=== PATIENT | male | born 1945 | race Caucasian/White ===

== ENCOUNTER 2019-07-13 12:46 | Emergency (ER) | payer MEDICARE, OTHER ==
[~2019-07-13] VITALS: Ht 167.6 cm; Wt 81.0 kg
[2019-07-13 13:29] LABS: BASOPHILS # (AUTO) 0.1 X10'3 (0-0.2); BASOPHILS % (AUTO) 0.6 % (0-1); EOSINOPHILS # (AUTO) 0.4 X10'3 (0-0.9); EOSINOPHILS % (AUTO) 4.1 % (0-6); HEMATOCRIT 41.4 % (42.0-52.0); LYMPHOCYTES # (AUTO) 1.6 X10'3 (1.1-4.8); MEAN CORPUSCULAR HEMOGLOBIN 31.3 PG (27.0-31.0); MEAN CORPUSCULAR HGB CONC 33.9 g/dL (33.0-36.5); MEAN CORPUSCULAR VOLUME 92.5 FL (78-98); NEUTROPHILS # (AUTO) 6.3 X10'3 (1.8-7.7); NEUTROPHILS % (AUTO) 67.3 % (42-75); PLATELET COUNT 211 X10'3 (140-440); RED BLOOD COUNT 4.47 X10'6 (4.70-6.10); RED CELL DISTRIBUTION WIDTH 14.1 % (11.5-14.5); WHITE BLOOD COUNT 9.3 X10'3 (4.5-11.0)
[2019-07-13 13:47] LABS: ALANINE AMINOTRANSFERASE 21 U/L (12-78); ALBUMIN 3.6 G/DL (3.4-5.0); ALBUMIN/GLOBULIN RATIO 0.9 (1.1-1.5); ALKALINE PHOSPHATASE 61 IU/L (46-116); ANION GAP 9 (8-16); ASPARTATE AMINO TRANSFERASE 16 U/L (10-37); BILIRUBIN,TOTAL 0.6 MG/DL (0.1-1.0); BLOOD UREA NITROGEN 30 MG/DL (7-18); BUN/CREATININE RATIO 18.9 (5.4-32.0); CALCIUM 8.9 MG/DL (8.5-10.1); CHLORIDE 100 MMOL/L (99-107); CREATININE 1.59 MG/DL (0.60-1.10); GLUCOSE 95 MG/DL (70-104); LIPASE 191 U/L (73-393); POTASSIUM 3.6 MMOL/L (3.5-5.1); SODIUM 139 MMOL/L (135-145); TOTAL CARBON DIOXIDE 29.9 MMOL/L (24-32); TOTAL PROTEIN 7.6 G/DL (6.4-8.2); eGFR 43 ML/MIN
[2019-07-13] MEDS ORDERED: ringers solution, lacted 1,000 ML IV ONE (14:15)
[2019-07-13] MEDS ORDERED: ondansetron/PF 4mg/2ml inj IV ONE (14:15)
[2019-07-13] MEDS ORDERED: morphine 4 MG/ML inj SYRINge IV ONE (14:15)
[2019-07-13 14:46] LABS: CLARITY,URINE CLEAR (Clear); COLOR,URINE YELLOW (Yellow); GLUCOSE, URINE NEGATIVE (Neg); KETONES,URINE NEGATIVE (Neg); LEUKOCYTE ESTERASE ,URINE NEGATIVE (Neg); NITRITES, URINE NEGATIVE (Neg); OCCULT BLOOD,URINE NEGATIVE (Neg); PROTEIN,URINE NEGATIVE (Neg)
[2019-07-13 14:49] LABS: UA COLLECTION TYPE CLN CATCH MIDSTREAM
[2019-07-13] MEDS ORDERED: PER5325T PO (15:07)
[2019-07-13] MEDS ORDERED: FLO0.4C PO (15:07)
[2019-07-13] MEDS ORDERED: ONDA4TAB6 PO (15:07)
[2019-07-13] MEDS ORDERED: oxyCODONE/APAP 10/325mg tablet PO ONE (15:30)
[2019-07-13 15:49] VITALS: BP 171/76
== END 2019-07-13 16:05 | disposition home or self-care (01) ==
LOC: ER 12:47
DX: N13.2 Hydronephrosis with renal and ureteral calculous obstruction (principal); N17.9 Acute kidney failure, unspecified; R19.7 Diarrhea, unspecified; F41.9 Anxiety disorder, unspecified; I10 Essential (primary) hypertension; Z79.899 Other long term (current) drug therapy; Z87.19 Personal history of other diseases of the digestive system; Z85.46 Personal history of malignant neoplasm of prostate; Z90.49 Acquired absence of other specified parts of digestive tract; Z98.890 Other specified postprocedural states; Z90.79 Acquired absence of other genital organ(s)
CPT/HCPCS: 36415; 74176; 80053; 81003; 83690; 85025; 96361; 96374; 96375; 99284; J2270; J2405; J7120

== ENCOUNTER 2019-07-23 10:32 | Outpatient (CLI) | payer MEDICARE, OTHER ==
[~2019-07-23 10:32] MED LIST: FLO0.4C PO; ONDA4TAB6 PO; PER5325T PO
[2019-07-23 11:34] LABS: ALANINE AMINOTRANSFERASE 19 U/L (12-78); ALBUMIN 3.5 G/DL (3.4-5.0); ALBUMIN/GLOBULIN RATIO 0.9 (1.1-1.5); ALKALINE PHOSPHATASE 58 IU/L (46-116); ANION GAP 7 (8-16); ASPARTATE AMINO TRANSFERASE 18 U/L (10-37); BILIRUBIN,TOTAL 0.5 MG/DL (0.1-1.0); BLOOD UREA NITROGEN 32 MG/DL (7-18); BUN/CREATININE RATIO 22.4 (5.4-32.0); CALCIUM 9.2 MG/DL (8.5-10.1); CHLORIDE 99 MMOL/L (99-107); CREATININE 1.43 MG/DL (0.60-1.10); GLUCOSE 102 MG/DL (70-104); POTASSIUM 3.9 MMOL/L (3.5-5.1); SODIUM 137 MMOL/L (135-145); TOTAL PROTEIN 7.3 G/DL (6.4-8.2); eGFR 49 ML/MIN
== END 2019-07-23 23:59 | disposition home or self-care (01) ==
LOC: LAB 10:32
PROVIDERS: ATTEND Family Medicine
DX: N13.39 Other hydronephrosis (principal)
CPT/HCPCS: 36415; 80053

== ENCOUNTER 2019-08-15 07:05 | Observation (INO) | payer MEDICARE, OTHER ==
[2019-08-13 10:41] LABS: BASOPHILS % (AUTO) 0.6 % (0-1); EOSINOPHILS # (AUTO) 0.1 X10'3 (0-0.9); EOSINOPHILS % (AUTO) 2.1 % (0-6); LYMPHOCYTES # (AUTO) 1.2 X10'3 (1.1-4.8); LYMPHOCYTES % (AUTO) 18.6 % (21-51); MEAN CORPUSCULAR HEMOGLOBIN 31.4 PG (27.0-31.0); MEAN CORPUSCULAR HGB CONC 34.1 g/dL (33.0-36.5); MEAN CORPUSCULAR VOLUME 92.1 FL (78-98); MEAN PLATELET VOLUME 10.1 FL (7.4-10.4); MONOCYTES # (AUTO) 0.6 X10'3 (0-0.9); MONOCYTES % (AUTO) 9.7 % (2-12); NEUTROPHILS # (AUTO) 4.4 X10'3 (1.8-7.7); PRE OP HEMATOCRIT 39.6 % (42.0-52.0); PRE OP HEMOGLOBIN 13.5 g/dL (14.0-17.9); PRE OP PLATELET COUNT 164 X10'3 (140-440); RED CELL DISTRIBUTION WIDTH 14.6 % (11.5-14.5)
[2019-08-13 10:56] LABS: ALBUMIN 3.9 G/DL (3.4-5.0); ALBUMIN/GLOBULIN RATIO 1.1 (1.1-1.5); ALKALINE PHOSPHATASE 59 IU/L (46-116); BLOOD UREA NITROGEN 34 MG/DL (7-18); BUN/CREATININE RATIO 21.7 (5.4-32.0); CALCIUM 9.4 MG/DL (8.5-10.1); CHLORIDE 102 MMOL/L (99-107); CREATININE 1.57 MG/DL (0.60-1.10); PRE OP ALT 19 U/L (30-65); PRE OP ANION GAP 11 (8-16); PRE OP AST 18 U/L (10-37); PRE OP BILIRUB, TOTAL 0.5 MG/DL (0.0-1.0); PRE OP GLUCOSE 91 MG/DL (70-104); PRE OP POTASSIUM 4.3 MMOL/L (3.4-5.1); PRE OP SODIUM 142 MMOL/L (135-145); TOTAL CARBON DIOXIDE 29.1 MMOL/L (24-32); TOTAL PROTEIN 7.5 G/DL (6.4-8.2); eGFR 44 ML/MIN
[2019-08-15] VITALS (18 sets, daily range): BP systolic 122–151; BP diastolic 55–90
[~2019-08-15] VITALS: Ht 170.2 cm; Wt 82.6 kg
[~2019-08-15 07:05] MED LIST changes: +CHOL100046 PO; +CITA20TA28 PO; +LISI1TAB28 PO; +MULT-1085 PO; -ONDA4TAB6 PO; -PER5325T PO; +PRAV40TA3 PO; +ceFAZolin 1GM/D5W- ADD-VANTAGE 50 ML IV ONE; +famotidine 20mg tablet PO ONE; +ringers solution, lacted 1,000 ML IV SCH
[2019-08-15] MEDS ORDERED: LIDOcaine 1% (10mg/ml) 2ml vial ONE (07:51)
[2019-08-15] MEDS ORDERED: fentaNYL/PF 50MCG/1 ML 2ML syringe ONE ×2 (09:13→10:18)
[2019-08-15] MEDS ORDERED: rocuronium 10mg/ml inj IV ONE (09:16)
[2019-08-15] MEDS ORDERED: LIDOcaine 2% (20mg/ml) 5ml vial ONE (09:16)
[2019-08-15] MEDS ORDERED: propofol inj 20 ML IV ONE (09:16)
[2019-08-15] MEDS ORDERED: sevoflurane 250ml liquid IH ONE (09:16)
[2019-08-15] MEDS ORDERED: ondansetron/PF 4mg/2ml inj IV PRN ×2 (09:50→12:25)
[2019-08-15] MEDS ORDERED: ringers solution, lacted 1,000 ML IV SCH (09:50)
[2019-08-15] MEDS ORDERED: morphine 4 MG/ML inj SYRINge IV PRN (09:50)
[2019-08-15] MEDS ORDERED: HYDROmorphone inj. 0.5 MG/0.5 ML DISP.SYRIN IV PRN (09:50)
[2019-08-15] MEDS ORDERED: neostigmine methylsulfate 1 MG/ML 10ml vial ONE (09:57)
[2019-08-15] MEDS ORDERED: glycopyrrolate 0.2mg/ml inj ONE (09:57)
[2019-08-15] MEDS ORDERED: ondansetron/PF 4mg/2ml inj ONE (09:57)
[2019-08-15] MEDS ORDERED: dexamethasone sod phosphate 4mg/ml inj. ONE (09:57)
[2019-08-15] MEDS ORDERED: ceFAZolin 1000mg inj ONE (09:57)
[2019-08-15] MEDS ORDERED: iohexol 300 MG/1 ML 10ml vial ONE (11:04)
[2019-08-15] MEDS ORDERED: ePHEDrine 50MG/ML INJ. ONE (11:49)
--- NOTE | 2019-08-15 12:19 | NUR ---
Received from OR via SURGICAL BED , accompanied by Anesthesiologist MIKI and report given by Anesthesiolgist. PATIENT WITH 20G PIV IN LEFT WRIST AREA. PATIENT DENIES PAIN. 3 WAY COLE IRRIGATION WITH LEG SECUREMENT DEVICE IN PLACE. PATIENT VSS.SCDS DONNED Addendum: 08/15/19 at 1238 by Kehinde Covington RN, RN Amended: Links added.
[2019-08-15] MEDS ORDERED: HYDROcodone/acetaminophen 10/325mg tab PO PRN (12:25)
[2019-08-15] MEDS ORDERED: HYDROcodone/acetaminophen 5mg/325mg tablet PO PRN (12:25)
--- NOTE | 2019-08-15 13:19 | NUR ---
ALL CRITERIA FOR TRANSFER TO THE FLOOR HAS BEEN ACHIEVED. VSS. BED LOW, CALL LIGHT AND VS. SET IN PLACE. RN PRESENT TO ACCEPT CARE. PATIENT RESTING COMFORTABLY IN BED. BELONGINGS SENT WITH PATIENT. DRESSINGS CDI. AUGUSTO CADET PRESENT TO ACCEPT CARE. VSS. CBI RUNNING WITH URINE STILL PINK IN COLORATION. Addendum: 08/15/19 at 1334 by Kehinde Tanner - AUGUSTO CASAS Amended: Links added.
--- NOTE | 2019-08-15 13:23 | NUR ---
RECEIVED REPORT FROM RECOVERY
[2019-08-15] MEDS: potassium CL 20mEq in D5-1/2NS 1,000 ML IV SCH ×2 (13:41→23:26)
[2019-08-15] MEDS ORDERED: ceFAZolin inj. 1,000 MG in dextrose 5%-water 50ml 50 ML IV SCH ×2 (16:00→19:23)
[2019-08-15] MEDS ORDERED: opium/belladonna alkaloids No. 15A 30mg rectal suppository RC PRN (18:25)
--- NOTE | 2019-08-15 18:30 | NUR ---
Patient in room [facility]. I have received report from AUGUSTO Stuart and had the opportunity to ask questions and assume patient care.
[2019-08-15] MEDS: ceFAZolin inj. 1,000 MG in dextrose 5%-water 50ml 50 ML IV SCH ×2 (19:36→23:26)
[2019-08-16] VITALS: BP 132/74
[2019-08-16 05:29] LABS: ALBUMIN 3.3 G/DL (3.4-5.0); ANION GAP 7 (8-16); BLOOD UREA NITROGEN 19 MG/DL (7-18); BUN/CREATININE RATIO 15.4 (5.4-32.0); CALCIUM 8.5 MG/DL (8.5-10.1); CHLORIDE 104 MMOL/L (99-107); CREATININE 1.23 MG/DL (0.60-1.10); GLUCOSE 123 MG/DL (70-104); SODIUM 140 MMOL/L (135-145); TOTAL CARBON DIOXIDE 29.2 MMOL/L (24-32); eGFR 58 ML/MIN
[2019-08-16 05:31] LABS: BASOPHILS % (AUTO) 0.3 % (0-1); EOSINOPHILS # (AUTO) 0.1 X10'3 (0-0.9); EOSINOPHILS % (AUTO) 0.7 % (0-6); HEMATOCRIT 36.8 % (42.0-52.0); HEMOGLOBIN 12.7 g/dl (14.0-17.9); LYMPHOCYTES # (AUTO) 1.4 X10'3 (1.1-4.8); LYMPHOCYTES % (AUTO) 16.4 % (21-51); MEAN CORPUSCULAR HGB CONC 34.4 g/dL (33.0-36.5); MEAN CORPUSCULAR VOLUME 93.1 FL (78-98); MEAN PLATELET VOLUME 10.6 FL (7.4-10.4); MONOCYTES # (AUTO) 0.7 X10'3 (0-0.9); MONOCYTES % (AUTO) 7.9 % (2-12); NEUTROPHILS # (AUTO) 6.4 X10'3 (1.8-7.7); NEUTROPHILS % (AUTO) 74.7 % (42-75); PLATELET COUNT 165 X10'3 (140-440); RED BLOOD COUNT 3.96 X10'6 (4.70-6.10); RED CELL DISTRIBUTION WIDTH 14.9 % (11.5-14.5); WHITE BLOOD COUNT 8.5 X10'3 (4.5-11.0)
--- NOTE | 2019-08-16 06:30 | NUR ---
Problems reprioritized. Patient report given, questions answered & plan of care reviewed with AUGUSTO Storey.
--- NOTE | 2019-08-16 06:38 | NUR ---
Patient in room [facility]. I have received report from Ysabel CASAS and had the opportunity to ask questions and assume patient care.
[2019-08-16 08:00] VITALS: BP 154/67
[2019-08-16] MEDS ORDERED: HYDR-3965 PO (09:12)
[2019-08-16] MEDS ORDERED: CIPR-260 PO (09:12)
[2019-08-16] MEDS: potassium CL 20mEq in D5-1/2NS 1,000 ML IV SCH (09:43)
[2019-08-16 11:00] VITALS: BP 151/77
== END 2019-08-16 15:20 | disposition home or self-care (01) ==
LOC: PAS 07:05 → SUR 3N 12:21
PROVIDERS: ADMIT Student in an Organized Health Care Education/Training Program; ATTEND Student in an Organized Health Care Education/Training Program
PROC: BT1F1ZZ Fluoroscopy of Left Kidney, Ureter and Bladder using Low Osmolar Contrast (ICD-10-PCS; 2019-08-15)
PROC: 0T778DZ Dilation of Left Ureter with Intraluminal Device, Via Natural or Artificial Opening Endoscopic (ICD-10-PCS; 2019-08-15)
PROC: 0TBB8ZZ Excision of Bladder, Via Natural or Artificial Opening Endoscopic (ICD-10-PCS; principal; 2019-08-15 09:15)
DX: N13.2 Hydronephrosis with renal and ureteral calculous obstruction (principal); Z85.46 Personal history of malignant neoplasm of prostate; D30.3 Benign neoplasm of bladder; I10 Essential (primary) hypertension; R10.84 Generalized abdominal pain; G47.30 Sleep apnea, unspecified; Z87.891 Personal history of nicotine dependence; R33.8 Other retention of urine
CPT/HCPCS: 36415; 52235; 52332; 76000; 80048; 80053; 82948; 85025; 96365; 96366; 96375; C1758; C1769; C2617; G0378; J0690; J1100; J1170; J2001; J2405; J2704; J2710; J3010; J3480; J7030; J7060; Q9967; 88307; A4346; A4618; A7000; J3490; J7120

== ENCOUNTER 2019-08-22 21:39 | Emergency (ER) | payer MEDICARE, OTHER ==
[~2019-08-22] VITALS: Ht 170.2 cm; Wt 81.8 kg
[~2019-08-22 21:39] MED LIST changes: +CIPR-260 PO; +HYDR-3965 PO; -ceFAZolin 1GM/D5W- ADD-VANTAGE 50 ML IV ONE; -famotidine 20mg tablet PO ONE; -ringers solution, lacted 1,000 ML IV SCH
[2019-08-22] MEDS ORDERED: tamsulosin 0.4mg capsule PO ONE (22:40)
[2019-08-22] MEDS ORDERED: oxybutynin 5mg tablet PO SCH (22:40)
[2019-08-22] MEDS ORDERED: tamsulosin 0.4mg capsule PO SCH (22:40)
[2019-08-22] MEDS ORDERED: oxybutynin 5mg tablet PO ONE (22:40)
[2019-08-22] MEDS ORDERED: OXYB5TAB16 PO (23:04)
[2019-08-22] MEDS ORDERED: DIAZ5TAB PO (23:04)
[2019-08-22] MEDS ORDERED: PHEN-824 PO (23:04)
[2019-08-22 23:16] VITALS: BP 142/111
== END 2019-08-22 23:18 | disposition home or self-care (01) ==
LOC: ER 21:39
DX: T83.038A Leakage of other urinary catheter, initial encounter (principal); N35.919 Unspecified urethral stricture, male, unspecified site; I10 Essential (primary) hypertension; Z98.890 Other specified postprocedural states; Z90.49 Acquired absence of other specified parts of digestive tract; Z79.899 Other long term (current) drug therapy; Y92.89 Other specified places as the place of occurrence of the external cause
CPT/HCPCS: 99283

== ENCOUNTER 2019-10-22 09:45 | Outpatient (CLI) | payer MEDICARE, OTHER ==
[2019-10-21 12:24] LABS: ALBUMIN 4.1 G/DL (3.4-5.0); ANION GAP 10 (8-16); BLOOD UREA NITROGEN 27 MG/DL (7-18); BUN/CREATININE RATIO 23.7 (5.4-32.0); CALCIUM 9.2 MG/DL (8.5-10.1); CHLORIDE 103 MMOL/L (99-107); CREATININE 1.14 MG/DL (0.60-1.10); GLUCOSE 99 MG/DL (70-104); POTASSIUM 4.2 MMOL/L (3.5-5.1); SODIUM 141 MMOL/L (135-145); TOTAL CARBON DIOXIDE 27.7 MMOL/L (24-32); eGFR 63 ML/MIN
[~2019-10-22 09:45] MED LIST changes: +DIAZ5TAB PO; -HYDR-3965 PO; +OXYB5TAB16 PO; +PHEN-824 PO; +iohexol 300mg/ml 100ml inj. ONE
== END 2019-10-22 23:59 | disposition home or self-care (01) ==
LOC: 64 CT 09:45
PROVIDERS: ATTEND Student in an Organized Health Care Education/Training Program
DX: C61 Malignant neoplasm of prostate (principal); N20.0 Calculus of kidney; K44.9 Diaphragmatic hernia without obstruction or gangrene; K43.9 Ventral hernia without obstruction or gangrene; K42.9 Umbilical hernia without obstruction or gangrene
CPT/HCPCS: 36415; 74177; 80048; Q9967

== ENCOUNTER 2019-11-15 23:10 | Emergency (ER) | payer MEDICARE, OTHER ==
[~2019-11-15] VITALS: Ht 170.2 cm; Wt 87.9 kg
[~2019-11-15 23:10] MED LIST changes: -iohexol 300mg/ml 100ml inj. ONE
[2019-11-15] MEDS ORDERED: oxybutynin 5mg tablet PO ONE (23:30)
[2019-11-15] MEDS ORDERED: tamsulosin 0.4mg capsule PO ONE (23:30)
[2019-11-15] MEDS ORDERED: opium/belladonna alkaloids No. 15A 30mg rectal suppository RC ONE (23:40)
[2019-11-15 23:56] LABS: ALANINE AMINOTRANSFERASE 26 U/L (12-78); ALBUMIN 4.2 G/DL (3.4-5.0); ALBUMIN/GLOBULIN RATIO 1.2 (1.1-1.5); ALKALINE PHOSPHATASE 60 IU/L (46-116); ANION GAP 10 (8-16); ASPARTATE AMINO TRANSFERASE 20 U/L (10-37); BILIRUBIN,TOTAL 0.4 MG/DL (0.1-1.0); BLOOD UREA NITROGEN 35 MG/DL (7-18); BUN/CREATININE RATIO 30.2 (5.4-32.0); CALCIUM 9.7 MG/DL (8.5-10.1); CHLORIDE 103 MMOL/L (99-107); CREATININE 1.16 MG/DL (0.60-1.10); GLUCOSE 140 MG/DL (70-104); LIPASE 192 U/L (73-393); POTASSIUM 3.6 MMOL/L (3.5-5.1); SODIUM 142 MMOL/L (135-145); TOTAL CARBON DIOXIDE 28.8 MMOL/L (24-32); TOTAL PROTEIN 7.8 G/DL (6.4-8.2); eGFR 62 ML/MIN
[2019-11-16] LABS: BASOPHILS # (AUTO) 0.1 X10'3 (0-0.2); BASOPHILS % (AUTO) 0.7 % (0-1); EOSINOPHILS # (AUTO) 0.2 X10'3 (0-0.9); EOSINOPHILS % (AUTO) 2.6 % (0-6); HEMATOCRIT 44.7 % (42.0-52.0); HEMOGLOBIN 15.5 g/dl (14.0-17.9); LYMPHOCYTES # (AUTO) 2.1 X10'3 (1.1-4.8); LYMPHOCYTES % (AUTO) 24.6 % (21-51); MEAN CORPUSCULAR HEMOGLOBIN 31.6 PG (27.0-31.0); MEAN CORPUSCULAR HGB CONC 34.6 g/dL (33.0-36.5); MEAN CORPUSCULAR VOLUME 91.3 FL (78-98); MEAN PLATELET VOLUME 9.9 FL (7.4-10.4); MONOCYTES # (AUTO) 0.9 X10'3 (0-0.9); MONOCYTES % (AUTO) 10.7 % (2-12); NEUTROPHILS # (AUTO) 5.1 X10'3 (1.8-7.7); NEUTROPHILS % (AUTO) 61.4 % (42-75); PLATELET COUNT 167 X10'3 (140-440); RED BLOOD COUNT 4.89 X10'6 (4.70-6.10); RED CELL DISTRIBUTION WIDTH 13.7 % (11.5-14.5); WHITE BLOOD COUNT 8.4 X10'3 (4.5-11.0)
[2019-11-16 00:17] LABS: CLARITY,URINE CLOUDY (Clear); COLOR,URINE RED (Yellow); GLUCOSE, URINE NEGATIVE (Neg); KETONES,URINE NEGATIVE (Neg); LEUKOCYTE ESTERASE ,URINE NEGATIVE (Neg); NITRITES, URINE NEGATIVE (Neg); OCCULT BLOOD,URINE LARGE (Neg); PH,URINE 6.5 (4.8-8.0); PROTEIN,URINE 30 mg/dl (Neg); UROBILINOGEN,URINE 0.2 E.U/dL (0.2-1.0)
[2019-11-16 00:18] LABS: UA COLLECTION TYPE FOLEY CATH
[2019-11-16 00:39] LABS: BACTERIA,URINE NONE SEEN /HPF (Neg); MUCUS STRANDS NONE SEEN /LPF (Neg); RBC,URINE TNTC /HPF (0-2); SQUAMOUS EPITHELIAL CELL,UR NONE SEEN /LPF (FEW); WBC,URINE 0-4 /HPF (0-4)
[2019-11-16] MEDS ORDERED: B030R RC (00:44)
[2019-11-16 00:56] VITALS: BP 148/67
== END 2019-11-16 00:57 | disposition home or self-care (01) ==
LOC: ER 23:11
DX: R31.9 Hematuria, unspecified (principal); R33.9 Retention of urine, unspecified; N32.89 Other specified disorders of bladder; I10 Essential (primary) hypertension; F41.9 Anxiety disorder, unspecified; Z90.49 Acquired absence of other specified parts of digestive tract; Z98.890 Other specified postprocedural states; Z79.2 Long term (current) use of antibiotics; Z79.899 Other long term (current) drug therapy
CPT/HCPCS: 36415; 80053; 81001; 83690; 85025; 99284

== ENCOUNTER 2022-01-17 13:13 | Outpatient (CLI) | payer MEDICARE, OTHER ==
[~2022-01-17 13:13] MED LIST changes: -LISI1TAB28 PO; +LISI1TAB51 PO
== END 2022-01-17 23:59 | disposition home or self-care (01) ==
LOC: RAD 13:13
PROVIDERS: ATTEND Student in an Organized Health Care Education/Training Program
DX: N28.1 Cyst of kidney, acquired (principal)
CPT/HCPCS: 76770

== ENCOUNTER 2022-05-11 14:51 | Outpatient (CLI) | payer MEDICARE, OTHER | END 2022-05-11 23:59 | disposition home or self-care (01) | LOC: RAD 14:51 | PROVIDERS: ATTEND Nurse Practitioner Family | DX: I51.7 Cardiomegaly (principal) | CPT/HCPCS: 71046 ==

== ENCOUNTER 2022-07-28 13:59 | Outpatient (CLI) | payer MEDICARE, OTHER | END 2022-07-28 23:59 | disposition home or self-care (01) | LOC: RAD 13:59 | PROVIDERS: ATTEND Nurse Practitioner Family | DX: M25.512 Pain in left shoulder (principal) | CPT/HCPCS: 73030 ==

== ENCOUNTER → 2022-09-04 | Outpatient (CLI) | payer MEDICARE, OTHER | END | disposition home or self-care (01) | LOC: RAD 13:49 | PROVIDERS: ATTEND Nurse Practitioner Family | DX: M19.012 Primary osteoarthritis, left shoulder (principal); M75.82 Other shoulder lesions, left shoulder; R22.32 Localized swelling, mass and lump, left upper limb | CPT/HCPCS: 73221 ==

== ENCOUNTER 2023-03-26 13:40 | Outpatient (CLI) | payer MEDICARE, OTHER | END 2023-03-26 23:59 | disposition home or self-care (01) | LOC: RAD 13:40 | PROVIDERS: ATTEND Nurse Practitioner Family | DX: J98.11 Atelectasis (principal); N62 Hypertrophy of breast; I25.10 Atherosclerotic heart disease of native coronary artery without angina pectoris; N28.89 Other specified disorders of kidney and ureter; Z87.891 Personal history of nicotine dependence | CPT/HCPCS: 71250 ==

== ENCOUNTER 2023-04-21 14:47 | Emergency (ER) | payer MEDICARE, OTHER ==
[~2023-04-21] VITALS: Ht 170.2 cm; Wt 100.0 kg
[2023-04-21 15:00] VITALS: BP 198/108; PULSE 74; RESP 18; TEMP 98.3; O2SAT 96
[2023-04-21] MEDS ORDERED: tamsulosin 0.4mg capsule PO STA (15:59)
== END 2023-04-21 16:22 | disposition home or self-care (01) ==
LOC: ER 14:48
DX: R33.9 Retention of urine, unspecified (principal); I10 Essential (primary) hypertension; Z79.899 Other long term (current) drug therapy; Z79.2 Long term (current) use of antibiotics; Z98.890 Other specified postprocedural states
CPT/HCPCS: 51701; 99284; C1758

== ENCOUNTER 2023-04-30 13:32 | Outpatient (CLI) | payer MEDICARE, OTHER ==
[2023-04-26 15:53] LABS: ALANINE AMINOTRANSFERASE 24 U/L (12-78); ALBUMIN 3.9 G/DL (3.4-5.0); ALBUMIN/GLOBULIN RATIO 1.3 (1.1-1.5); ALKALINE PHOSPHATASE 62 IU/L (46-116); ANION GAP 8 (8-16); ASPARTATE AMINO TRANSFERASE 16 U/L (10-37); BILIRUBIN,TOTAL 0.3 MG/DL (0.1-1.0); BLOOD UREA NITROGEN 29 MG/DL (7-18); BUN/CREATININE RATIO 27.4 (10.0-20.0); CALCIUM 8.9 MG/DL (8.5-10.1); CHLORIDE 103 MMOL/L (99-107); CREATININE 1.06 MG/DL (0.60-1.10); GLUCOSE 94 MG/DL (70-104); POTASSIUM 3.9 MMOL/L (3.5-5.1); SODIUM 139 MMOL/L (135-145); TOTAL CARBON DIOXIDE 28.5 MMOL/L (24-32); eGFR 68 ML/MIN
[2023-04-30] MEDS ORDERED: GADOTERATE MEGLUMINE 7.5 MMOL/15 ML VIAL IV ONE (14:41)
== END 2023-04-30 23:59 | disposition home or self-care (01) ==
LOC: RAD 13:32
PROVIDERS: ATTEND Nurse Practitioner Family
DX: Z01.812 Encounter for preprocedural laboratory examination (principal); N18.30 Chronic kidney disease, stage 3 unspecified; R16.0 Hepatomegaly, not elsewhere classified; N28.1 Cyst of kidney, acquired; K76.89 Other specified diseases of liver
CPT/HCPCS: 36415; 74183; 80053; A9575

== ENCOUNTER 2024-01-07 14:05 | Day surgery (SDC) | payer MEDICARE, OTHER ==
[2024-01-04 11:52] LABS: BASOPHILS % (AUTO) 0.6 % (0-1); EOSINOPHILS # (AUTO) 0.2 X10'3 (0-0.9); HEMATOCRIT 41.3 % (42.0-52.0); HEMOGLOBIN 13.9 g/dl (14.0-17.9); LYMPHOCYTES # (AUTO) 1.6 X10'3 (1.1-4.8); MEAN CORPUSCULAR HEMOGLOBIN 30.8 PG (27.0-31.0); MEAN CORPUSCULAR HGB CONC 33.7 g/dL (33.0-36.5); MEAN CORPUSCULAR VOLUME 91.4 FL (78-98); MEAN PLATELET VOLUME 9.7 FL (7.4-10.4); MONOCYTES # (AUTO) 0.7 X10'3 (0-0.9); NEUTROPHILS # (AUTO) 5.4 X10'3 (1.8-7.7); NEUTROPHILS % (AUTO) 67.4 % (42-75); PLATELET COUNT 177 X10'3 (140-440); RED BLOOD COUNT 4.52 X10'6 (4.70-6.10); RED CELL DISTRIBUTION WIDTH 14.9 % (11.5-14.5)
[2024-01-04 12:03] LABS: ALBUMIN 3.7 G/DL (3.4-5.0); ANION GAP 9 (8-16); BLOOD UREA NITROGEN 21 MG/DL (7-18); BUN/CREATININE RATIO 21.9 (10.0-20.0); CALCIUM 8.8 MG/DL (8.5-10.1); CHLORIDE 103 MMOL/L (99-107); CREATININE 0.96 MG/DL (0.60-1.10); GLUCOSE 115 MG/DL (70-104); POTASSIUM 4.1 MMOL/L (3.5-5.1); SODIUM 138 MMOL/L (135-145); TOTAL CARBON DIOXIDE 25.9 MMOL/L (24-32); eGFR 76 ML/MIN
[2024-01-04 12:06] LABS: APTT 27 SECONDS (22-32); INR 1.1 INR
[~2024-01-07] VITALS: Ht 170.2 cm; Wt 91.8 kg
[2024-01-07] VITALS (10 sets, daily range): BP systolic 130–156; BP diastolic 74–98; PULSE 78–93; RESP 12–23; TEMP 98; O2SAT 92–97
[~2024-01-07 14:05] MED LIST changes: -OXYB5TAB16 PO; +OXYB5TAB21 PO
[2024-01-07] MEDS ORDERED: normal saline 1,000 ML IV SCH (14:30)
[2024-01-07] MEDS ORDERED: diphenhydrAMINE 25mg capsule PO PRN (14:30)
[2024-01-07] MEDS ORDERED: LORazepam 0.5 MG tablet PO PRN (14:30)
[2024-01-07] MEDS ORDERED: EZET10TA48 PO (14:38)
[2024-01-07] MEDS ORDERED: ASPI-611 PO (14:38)
[2024-01-07] MEDS ORDERED: ROSU40TA22 PO (14:38)
[2024-01-07] MEDS ORDERED: CLOP75TA34 PO (14:38)
[2024-01-07] MEDS ORDERED: CHOL100040 PO (14:38)
[2024-01-07] MEDS ORDERED: GABA-530 PO (14:38)
[2024-01-07] MEDS ORDERED: atropine 0.1mg/ml 10ml syringe ONE (15:52)
[2024-01-07] MEDS ORDERED: heparin 1,000unit/ml 10ml vial 0 ML ONE (15:52)
[2024-01-07] MEDS ORDERED: phenylephrine 10mg/ml inj. -priapism dosing ONE (15:52)
[2024-01-07] MEDS ORDERED: LIDOcaine 1% 30ml preserv. free vial ONE (15:52)
[2024-01-07] MEDS ORDERED: iohexol 350MG/ML 100ml bottle IV ONE (15:53)
[2024-01-07] MEDS ORDERED: DOPamine 400mg/D5W 250ml 0 ML IV ONE (15:53)
[2024-01-07] MEDS ORDERED: HYDROcodone/acetaminophen 5mg/325mg tablet PO PRN (17:30)
[2024-01-07] MEDS ORDERED: HYDROcodone/acetaminophen 10/325mg tab PO PRN (17:30)
== END 2024-01-07 19:20 | disposition home or self-care (01) ==
LOC: SSTAY O 14:05
PROVIDERS: ATTEND Student in an Organized Health Care Education/Training Program
DX: I65.21 Occlusion and stenosis of right carotid artery (principal); I10 Essential (primary) hypertension; E78.00 Pure hypercholesterolemia, unspecified; G47.33 Obstructive sleep apnea (adult) (pediatric); F41.9 Anxiety disorder, unspecified; Z85.46 Personal history of malignant neoplasm of prostate; Z79.82 Long term (current) use of aspirin; Z79.899 Other long term (current) drug therapy
CPT/HCPCS: 36222; 36415; 80048; 85025; 85610; 85730; 99152; 99153; J1644; J2371; J3490; J7030; Q9967; A6258; C1760; C1894; J0461; J1265; J2370

== ENCOUNTER 2024-04-10 12:35 | Outpatient (CLI) | payer MEDICARE, OTHER ==
[~2024-04-10 12:35] MED LIST changes: +ASPI-611 PO; +CHOL100040 PO; -CHOL100046 PO; -CIPR-260 PO; +CLOP75TA34 PO; -DIAZ5TAB PO; +EZET10TA48 PO; +GABA-530 PO; -MULT-1085 PO; -OXYB5TAB21 PO; -PHEN-824 PO; -PRAV40TA3 PO; +ROSU40TA71 PO
== END 2024-04-10 23:59 | disposition home or self-care (01) ==
LOC: RAD 12:35
PROVIDERS: ATTEND Student in an Organized Health Care Education/Training Program
DX: N28.1 Cyst of kidney, acquired (principal); Z87.442 Personal history of urinary calculi
CPT/HCPCS: 76770

== ENCOUNTER 2024-04-21 10:51 | Outpatient (CLI) | payer MEDICARE, OTHER ==
[2024-04-21 11:48] LABS: BASOPHILS # (AUTO) 0.1 X10'3 (0-0.2); BASOPHILS % (AUTO) 0.9 % (0-1); EOSINOPHILS # (AUTO) 0.1 X10'3 (0-0.9); EOSINOPHILS % (AUTO) 2.3 % (0-6); HEMATOCRIT 37.2 % (42.0-52.0); HEMOGLOBIN 12.5 g/dl (14.0-17.9); LYMPHOCYTES # (AUTO) 1.2 X10'3 (1.1-4.8); LYMPHOCYTES % (AUTO) 19.7 % (21-51); MEAN CORPUSCULAR HEMOGLOBIN 31.3 PG (27.0-31.0); MEAN CORPUSCULAR HGB CONC 33.6 g/dL (33.0-36.5); MEAN CORPUSCULAR VOLUME 93.1 FL (78-98); MEAN PLATELET VOLUME 9.9 FL (7.4-10.4); MONOCYTES # (AUTO) 0.6 X10'3 (0-0.9); MONOCYTES % (AUTO) 9.1 % (2-12); NEUTROPHILS # (AUTO) 4.2 X10'3 (1.8-7.7); PLATELET COUNT 144 X10'3 (140-440); RED BLOOD COUNT 3.99 X10'6 (4.70-6.10); RED CELL DISTRIBUTION WIDTH 15.1 % (11.5-14.5); WHITE BLOOD COUNT 6.1 X10'3 (4.5-11.0)
[2024-04-21 11:57] LABS: THYROID STIMULATING HORMONE 2.9 ulU/ml (0.34-4.50)
[2024-04-21 12:03] LABS: HEMOGLOBIN A1C 5.9 % (4.5-6.2)
== END 2024-04-21 23:59 | disposition home or self-care (01) ==
LOC: LAB 10:51
PROVIDERS: ATTEND Nurse Practitioner Family
DX: I10 Essential (primary) hypertension (principal); R79.89 Other specified abnormal findings of blood chemistry; E55.9 Vitamin D deficiency, unspecified; E78.00 Pure hypercholesterolemia, unspecified; R94.6 Abnormal results of thyroid function studies; R80.9 Proteinuria, unspecified; R73.01 Impaired fasting glucose; Z00.01 Encounter for general adult medical examination with abnormal findings
CPT/HCPCS: 36415; 82043; 82306; 82570; 83036; 84443; 85025

== ENCOUNTER 2024-09-30 13:24 | Outpatient (CLI) | payer MEDICARE, OTHER ==
[~2024-09-30 13:24] MED LIST changes: -ROSU40TA71 PO; +ROSU40TA89 PO
== END 2024-09-30 23:59 | disposition home or self-care (01) ==
LOC: VAS 13:24
PROVIDERS: ATTEND Surgery
DX: I65.23 Occlusion and stenosis of bilateral carotid arteries (principal)
CPT/HCPCS: 93880

== ENCOUNTER 2024-12-09 14:21 | Outpatient (CLI) | payer MEDICARE, OTHER | END 2024-12-09 23:59 | disposition home or self-care (01) | LOC: VAS 14:21 | PROVIDERS: ATTEND Internal Medicine Interventional Cardiology | DX: I10 Essential (primary) hypertension (principal); E78.5 Hyperlipidemia, unspecified; Z72.0 Tobacco use | CPT/HCPCS: 93978 ==

== ENCOUNTER 2025-05-28 12:46 | Outpatient (CLI) | payer MEDICARE, OTHER ==
[~2025-05-28 12:46] MED LIST changes: +CITA-178 PO; -CITA20TA28 PO; -FLO0.4C PO; +TAMS-55 PO
--- NOTE | 2025-05-29 10:35 | RADIOLOGY REPORT ---
CLINICAL HISTORY: BENIGN NEOPLASM OF BLADDER;HX PROSTATE MALIGNANT N TECHNIQUE: CT / CT urogram of the abdomen and pelvis was performed before and after administration IV contrast. 100ML of omnipaque 350 was administered. This exam was performed according to our [facility] dose optimization program. Up-to-date CT equipment and radiation dose reduction techniques are u tilized as appropriate. CTDI 28.8 DLP 1287.5 COMPARISON: MR MRI ABDOMEN on DOS: 04/30/23, CT ABDOMEN PELVIS on DOS: 10/22/19 FINDINGS: Abdomen/Pelvis: The spleen, gallbladder, and adrenal glands are unremarkable. There are bilateral renal cysts. There are 2 mm and 1 mm nonobstructing left renal calculi. There are 1 mm nonobstructing right renal calculi. Delayed images demonstrate no filling defect within the col lecting system or opacified uterus. The bladder is not well distended on precontrast, postcontrast, a nd your ray images. Urogram images demonstrate no definite bladder filling defect. There is diffuse hepatic steatosis with a few small cysts. The prostate gland is surgically absent. There is no abnormal soft tissue thickening within the surgi kulwant bed. There is a 3 mm pancreatic tail cyst, similar to previous MRI. The abdominal aorta is normal in course and caliber. There are moderate atherosclerotic calcification s. There is no free intraperitoneal air or fluid. There is no enlarged abdominal or pelvic lymph node. There has been public normal dissection. There is no bowel wall thickening or dilatation. The appendix is normal. There has been partial sigmo idectomy with reanastomosis. Other: The imaged lower thorax demonstrates mild at elected changes at both lung bases. There are a few LAD distribution coronary artery calcifications. No acute osseous abnormality is evident. IMPRESSION: Prostatectomy and partial sigmoidectomy. No CT evidence for recurrent or metastatic disease in the ab domen / pelvis. Diffuse hepatic steatosis. Bilateral nonobstructing renal calculi. 3 mm pancreatic tail cyst. No suspicious features. Bladder poorly evaluated due to poor distension. No definite filling defect seen on urogram images. I f there is concern for bladder mass, further work up is suggested.
== END 2025-05-28 23:59 | disposition home or self-care (01) ==
LOC: RAD 12:46
PROVIDERS: ATTEND Student in an Organized Health Care Education/Training Program
DX: D30.3 Benign neoplasm of bladder (principal); N28.1 Cyst of kidney, acquired; K86.2 Cyst of pancreas; N20.0 Calculus of kidney; K76.0 Fatty (change of) liver, not elsewhere classified; K76.89 Other specified diseases of liver; I25.10 Atherosclerotic heart disease of native coronary artery without angina pectoris; Z90.79 Acquired absence of other genital organ(s); Z85.46 Personal history of malignant neoplasm of prostate
CPT/HCPCS: 74178; Q9967

== ENCOUNTER 2025-06-30 13:06 | Outpatient (CLI) | payer MEDICARE, OTHER ==
[~2025-06-30 13:06] MED LIST changes: -EZET10TA48 PO; +EZET10TA80 PO
[2025-06-30 14:08] LABS: MEAN PLATELET VOLUME 9.8 FL (7.4-10.4); RED CELL DISTRIBUTION WIDTH 15.1 % (11.5-14.5)
[2025-06-30 14:33] LABS: CHOL/HDL RATIO 2.2 (0.00-4.99); CREATININE 1.08 MG/DL (0.60-1.10); LDL CHOLESTEROL 29 MG/DL (50-100); TOTAL CARBON DIOXIDE 29.3 MMOL/L (24-32); eGFR 66 ML/MIN
== END 2025-06-30 23:59 | disposition home or self-care (01) ==
LOC: LAB 13:06
PROVIDERS: ATTEND Nurse Practitioner Family
DX: I10 Essential (primary) hypertension (principal); E78.5 Hyperlipidemia, unspecified; Z12.5 Encounter for screening for malignant neoplasm of prostate
CPT/HCPCS: 36415; 80053; 80061; 82306; 83036; 83695; 84443; 85025

== ENCOUNTER 2025-07-09 13:31 | Outpatient (CLI) | payer MEDICARE, OTHER ==
[2025-07-11 11:12] LABS: PROSTATE SPECIFIC AG, SERUM 0.5 ng/mL (0.0-4.0)
[2025-07-11 19:23] LABS: % FREE PSA 4.0 % (.)
== END 2025-07-09 23:59 | disposition home or self-care (01) ==
LOC: LAB 13:31
PROVIDERS: ATTEND Student in an Organized Health Care Education/Training Program
DX: N42.9 Disorder of prostate, unspecified (principal)
CPT/HCPCS: 36415; 84153; 84154